=== PATIENT | male | born 1975 | race Hispanic/Latino ===

== ENCOUNTER 2017-11-29 22:19 | Observation (INO) | payer BC, OTHER ==
[2017-11-30] MEDS ORDERED: HYDROmorphone 0.5 mg/0.5 ml ISec IVP STA (00:28)
--- NOTE | 2017-11-30 00:33 | ED PDOC ---
Arrival/HPI - General Historian: Patient, Spouse - History of Present Illness Time/Duration: Other (see hpi) Context: Home <Alejo Staley - Last Filed: 11/30/17 02:28> <Art Miller - Last Filed: 11/30/17 03:10> - General Chief Complaint: Back Pain Time Seen by Provider: 11/30/17 00:20 - History of Present Illness Narrative History of Present Illness (Text): 11/30/17 00:30 This 42 yo male presents to this ED c/o b/l lower back pain since this morning. Patient pain has been gradually worsen. Patient stated his leg gave out due to pain while walking in the ED. Patient denies IV drug use. Patient denies trauma, heavy lifting, /GI incontinence, saddle anesthesias, weakness, paresthesias, urinary retention, or dizziness. (Alejo Staley) Past Medical History - Provider Review Nursing Documentation Reviewed: Yes - Infectious Disease Hx of Infectious Diseases: None - Tetanus Immunization Tetanus Immunization: Unknown - Cardiac Hx Cardiac Disorders: No - Pulmonary Hx Respiratory Disorders: No - Neurological Hx Neurological Disorder: No - HEENT Hx HEENT Disorder: No - Renal Hx Renal Disorder: No - Endocrine/Metabolic Hx Endocrine Disorders: No - Hematological/Oncological Hx Blood Disorders: No - Integumentary Hx Dermatological Disorder: No - Musculoskeletal/Rheumatological Hx Musculoskeletal Disorders: Yes Other/Comment: right knee injury - Gastrointestinal Hx Gastrointestinal Disorders: No - Genitourinary/Gynecological Hx Genitourinary Disorders: No - Psychiatric Hx Psychophysiologic Disorder: No Hx Substance Use: No - Past Surgical History Past Surgical History: No Previous - Suicidal Assessment Feels Threatened In Home Enviroment: No <Alejo Staley - Last Filed: 11/30/17 02:28> Family/Social History - Physician Review Nursing Documentation Reviewed: Yes Family/Social History: Other (noncontributory) Smoking Status: Heavy Smoker > 10 Cigarettes Daily Hx Alcohol Use: Yes Hx Substance Use: No Hx Substance Use Treatment: No <Alejo Staley - Last Filed: 11/30/17 02:28> Allergies/Home Meds <Alejo Staley - Last Filed: 11/30/17 02:28> <Art Miller - Last Filed: 11/30/17 03:10> Allergies/Adverse Reactions: Allergies No Known Allergies Allergy (Verified 04/02/15 08:53) Home Medications: Home Meds Medication Instructions Recorded Confirmed No Known Home Med [No Known Home 04/02/15 11/30/17 Med] Review of Systems - Review of Systems Constitutional: Normal. absent: Fatigue, Weight Change, Fevers, Night Sweats Eyes: Normal. absent: Vision Changes, Photophobia ENT: Normal Respiratory: Normal. absent: SOB, Cough Cardiovascular: Normal. absent: Chest Pain Gastrointestinal: Normal. absent: Abdominal Pain, Nausea, Vomiting Genitourinary Male: Normal. absent: Dysuria, Frequency, Hematuria Musculoskeletal: Back Pain. absent: Neck Pain Skin: Normal. absent: Rash Neurological: Normal. absent: Headache, Dizziness, Focal Weakness, Gait Changes , Speech Changes, Facial Droop, Disequilibrium, Seizure Endocrine: Normal Hemo/Lymphatic: Normal Psychiatric: Normal. absent: Suicidal Ideation <Alejo Staley P - Last Filed: 11/30/17 02:28> Physical Exam Temperature: Afebrile Blood Pressure: Normal Pulse: Regular Respiratory Rate: Normal Appearance: Positive for: Well-Appearing, Non-Toxic, Comfortable Pain Distress: None Mental Status: Positive for: Alert and Oriented X 3 - Systems Exam Head: Present: Atraumatic, Normocephalic Pupils: Present: PERRL Extroacular Muscles: Present: EOMI Conjunctiva: Present: Normal Mouth: Present: Moist Mucous Membranes Neck: Present: Normal Range of Motion Respiratory/Chest: Present: Clear to Auscultation, Good Air Exchange. No: Respiratory Distress, Accessory Muscle Use Cardiovascular: Present: Regular Rate and Rhythm, Normal S1, S2. No: Murmurs Abdomen: Present: Normal Bowel Sounds. No: Tenderness, Distention, Peritoneal Signs Back: Present: Normal Inspection, Paraspinal Tenderness (mild b/l paravertebral tenderness. No vertebral point tenderness. no vertebral step off.). No: CVA Tenderness, Midline Tenderness Upper Extremity: Present: Normal Inspection, Normal ROM. No: Cyanosis, Edema Lower Extremity: Present: Normal Inspection, Normal ROM. No: Edema Neurological: Present: GCS=15, CN II-XII Intact, Speech Normal, Motor Func Grossly Intact, Normal Sensory Function, Normal Cerebellar Funct, Gait Normal Skin: Present: Warm, Dry, Normal Color. No: Rashes Psychiatric: Present: Alert, Oriented x 3, Normal Insight, Normal Concentration <Alejo Staley - Last Filed: 11/30/17 02:28> Vital Signs Temp Pulse Resp BP Pulse Ox 11/29/17 22:40 98.8 F 82 18 126/74 99 11/29/17 22:36 98.8 F Medical Decision Making Re-evaluation Time: 03:07 Reassessment Condition: Re-examined, Improving,but remains with symptoms <Alejo tSaley - Last Filed: 11/30/17 02:28> <Art Miller - Last Filed: 11/30/17 03:10> ED Course and Treatment: 11/30/17 02:28 On revaluation, patient persist with pain. I recommended patient to stay for intractable back pain. 11/30/17 03:00 I spoke with regarding intractable lower back pain. He agrees with plan for observation. (Alejo Staley) - Lab Interpretations Lab Results: 11/30/17 00:58 11/30/17 00:58 Lab Results 11/30/17 01:22: Urine Color Yellow, Urine Appearance Clear, Urine pH 6.0, Ur Specific [place] 1.025, Urine Protein Negative, Urine Glucose (UA) Negative, Urine Ketones Trace H, Urine Blood Negative, Urine Nitrate Negative, Urine Bilirubin Negative, Urine Urobilinogen 1.0 H, Ur Leukocyte Esterase Negative 11/30/17 00:58: Sodium 143, Potassium 4.3, Chloride 103, Carbon Dioxide 31, Anion Gap 13, BUN 16, Creatinine 1.0, Est GFR ( Amer) > 60, Est GFR (Non- Af Amer) > 60, Random Glucose 96, Calcium 9.8, Total Bilirubin 0.6, AST 20, ALT 37, Alkaline Phosphatase 64, Total Protein 7.0, Albumin 4.0, Globulin 3.0, Albumin/Globulin Ratio 1.3 11/30/17 00:58: WBC 10.5, RBC 5.40, Hgb 16.0, Hct 48.0, MCV 88.9, MCH 29.6, MCHC 33.3, RDW 14.1, Plt Count 215, MPV 10.8, Gran % 48.3 L, Lymph % (Auto) 37.7 H, [place] % (Auto) 9.8 H, Eos % (Auto) 3.5, Baso % (Auto) 0.7, Gran # 5.06, Lymph # (Auto) 3.9 H, [place] # (Auto) 1.0 H, Eos # (Auto) 0.4, Baso # (Auto) 0.07 - RAD Interpretation Narrative RAD Interpretations (Text): 11/30/17 03:07 EXAM: CT Lumbar Spine Without Intravenous Contrast FINDINGS: Vertebrae: The lumbar vertebral bodies are normal in height, without abnormal subluxation or acute fracture. There is a small mineralized density or rib adjacent to the left transverse process at the level which is labeled as T12 for the purpose of this dictation. The remaining lumbar vertebral bodies are [id number]. Discs/spinal canal/neural foramina: Mild narrowing of the thecal sac is visualized at L2-3. There is a right paracentral disc protrusion at L3-4 with moderate narrowing of the thecal sac. At L4-5, there is a broad-based disc protrusion with moderate narrowing of the thecal sac. At L5-S1 , there is a right paracentral disc bulge/osteophyte complex with protrusion causing effacement of the anterior epidural fat and mild/moderate narrowing of the thecal sac. Bilateral neural foramina is identified from L2-3 through L4-5, with left neural foraminal narrowing at L5-S1. Kidneys and ureters: There is a subcentimeter hypodense probable cyst at the midpole of the left kidney. Stomach and bowel: There is moderate fecal material within the visualized colon and rectum. Colonic diverticula are visualized. IMPRESSION: 1. The lumbar vertebral bodies are normal in height, without abnormal subluxation or acute fracture. 2. There is a small mineralized density or rib adjacent to the left transverse process at the level which is labeled as T12 for the purpose of this dictation. This labeling could be confirmed with a thoracic spine x-ray study. 3. Mild narrowing of the thecal sac is visualized at L2-3. There is a right paracentral disc protrusion at L3-4 with moderate narrowing of the thecal sac. At L4-5, there is a broad-based disc protrusion with moderate narrowing of the thecal sac. At L5-S1, there is a right paracentral disc bulge/osteophyte complex with protrusion causing effacement of the anterior epidural fat and mild /moderate narrowing of the thecal sac. These findings can be further evaluated with MRI. 4. Bilateral neural foramina is identified from L2-3 through L4-5, with left neural foraminal narrowing at L5-S1. 5. Additional CT findings described above. (Alejo Staley) Radiology Orders: 11/30/17 00:30 LUMBAR SPINE W/O CONTRAST [CT] Stat - Medication Orders Current Medication Orders: Cyclobenzaprine HCl (Flexeril) 10 mg PO TID STELLA Famotidine (Pepcid) 40 mg PO HS STELLA Oxycodone/Acetaminophen (Percocet 10/325 Mg Tab) 1 tab PO Q4H PRN PRN Reason: Pain, severe (8-10) Discontinued Medications Hydromorphone HCl (Dilaudid) 1 mg IVP STAT STA Stop: 11/30/17 00:29 Last Admin: 11/30/17 01:03 Dose: 1 mg MAR Pain Assessment Document 11/30/17 01:03 [email or web address] (Rec: 11/30/17 01:04 [id number]) Pain Reassessment Is this a pain reassessment? No Sleep Is patient sleeping during reassessment? No Presence of Pain Presence of Pain Yes Pain Scale Used Pain Scale Used Numeric Location Pain Location Body Site Back Description Description Constant Intensity of Pain at present 8 Pain Behavior Facial Grimacing Aggravating Factors Changing Position Alleviating Factors/Management Position Change Techniques Alleviating Factors Medication IVP Administration Document 11/30/17 01:03 [email or web address] (Rec: 11/30/17 01:04 [id number]) Charges for Administration # of IVP Administrations 1 Ketorolac Tromethamine (Toradol) 30 mg IVP STAT STA Stop: 11/30/17 02:17 Last Admin: 11/30/17 02:44 Dose: 30 mg MAR Pain Assessment Document 11/30/17 02:44 [email or web address] (Rec: 11/30/17 02:46 [id number] [employer]) Pain Reassessment Is this a pain reassessment? No Sleep Is patient sleeping during reassessment? No Presence of Pain Presence of Pain Yes Pain Scale Used Pain Scale Used Numeric Location Pain Location Body Site Back Description Description Constant Pain Behavior Facial Grimacing Aggravating Factors Changing Position Alleviating Factors/Management Position Change Techniques Alleviating Factors Medication IVP Administration Document 11/30/17 02:44 [email or web address] (Rec: 11/30/17 02:46 [email or web address] [id number] [employer]) Charges for Administration # of IVP Administrations 1 - PA / REGISTERED ACCOUNT ADMINISTRATOR / Resident Statement / has reviewed & agrees with the documentation as recorded. / has examined the patient and agrees with the treatment plan. <Art Miller - Last Filed: 11/30/17 03:10> Disposition/Present on Arrival - Present on Arrival Any Indicators Present on Arrival: No History of DVT/PE: No History of Uncontrolled Diabetes: No Urinary Catheter: No History of Decub. Ulcer: No History Surgical Site Infection Following: None - Disposition Have Diagnosis and Disposition been Completed?: Yes Disposition Time: 03:09 Patient Plan: Observation <Alejo Staley - Last Filed: 11/30/17 02:28> <Art Miller - Last Filed: 11/30/17 03:10> - Disposition Diagnosis: Intractable back pain Disposition: HOSPITALIZED Condition: STABLE Forms: [employer] (Croatian)
[2017-11-30 01:20] LABS: BASO # 0.07 K/mm3 (0.0-2.0); BASO % 0.7 % (0.0-3.0); EOS # 0.4 (0.0-0.7); EOS % 3.5 % (1.5-5.0); GRAN # 5.06 (1.4-6.5); GRAN % 48.3 % (50.0-68.0); LYMPH # 3.9 (1.2-3.4); LYMPH % 37.7 % (22.0-35.0); MEAN CELL VOLUME 88.9 fl (80.0-105.0); MEAN CORPUSCULAR HEMOGLOBIN 29.6 pg (25.0-35.0); MEAN CORPUSCULAR HGB CONC 33.3 g/dl (31.0-37.0); MEAN PLATELET VOLUME 10.8 fl (7.0-11.0); MONO % 9.8 % (1.0-6.0); RBC 5.4 10^6/uL (3.5-6.1); RED CELL DISTRIBUTION WIDTH 14.1 % (11.5-14.5); WHITE BLOOD COUNT 10.5 10^3/ul (4.5-11.0)
[2017-11-30 01:38] LABS: ALB/GLOB RATIO 1.3 (1.1-1.8); ALT/SGPT 37 U/L (7-56); AST/SGOT 20 U/L (17-59); BLOOD UREA NITROGEN 16 mg/dL (7-21); CALCIUM 9.8 mg/dL (8.4-10.5); GFR AFRICAN-AMERICAN > 60; GFR NON-AFRICAN AMERICAN > 60
[2017-11-30 01:39] LABS: URINE BILIRUBIN NEGATIVE (NEGATIVE); URINE BLOOD NEGATIVE (NEGATIVE); URINE GLUCOSE (UA) NEGATIVE (NEGATIVE); URINE LEUKOCYTE ESTERASE NEGATIVE Leu/uL (NEGATIVE); URINE NITRATE NEGATIVE (NEGATIVE); URINE PROTEIN NEGATIVE mg/dL (<30 mg/dL)
[2017-11-30 01:45] LABS: URINE APPEARANCE CLEAR (CLEAR); URINE COLOR YELLOW (YELLOW)
--- NOTE | 2017-11-30 02:29 | CP.PCM.HP ---
<Neida Cabezas - Last Filed: 11/30/17 06:05> History of Present Illness - History of Present Illness History of Present Illness: Neida Cabezas, PGY1, H&P for : CC: back pain 42 year old male with PMH gastric ulcer (in childhood), presents for lower back pain that started this AM. This morning, while pt bent down to put on his socks , he suddenly felt sharp right sided low back pain, rates it as 8/10, radiates to right buttock area with associated numbness. Pt states that he was unable to go to work after this and has been lying in bed since. Pt has not had such pain before. 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 Throughout the day, the pain is now throughout lower lumbar back region, radiating to buttocks, states that he also feels weakness in his legs, "where his legs gave out" while coming to ED. States that any movement worsens the pain, while lying in bed relieves the pain. Did not take any medication at home. Denies bladder/bowel incontinence, saddle anesthesia, headache, fevers, chills, body aches, cp, sob, abdominal pain , leg swelling, paresthesias down the legs. In ED, pt's vitals stable, given 1 dose of dilaudid IV. 12 point ROS obtained and neg, except as noted per HPI. PMH: gastric ulcer (in childhood at age 8) PSH: right ACL repair (2016), hernia repair ALL: NKA FH: denies SH: works as a electromechanical equipment tester, works with heavy instruments. Smokes 1 ppd for past 30 years. Drinks beers occasionally once monthly. No recreational drugs. PMD: does not have one (goes to doctor on a "need-by basis") Present on Admission - Present on Admission Any Indicators Present on Admission: No History of DVT/PE: No History of Uncontrolled Diabetes: No Urinary Catheter: No Decubitus Ulcer Present: No Review of Systems - Review of Systems All systems: reviewed and no additional remarkable complaints except Review of Systems: as per hpi Past Patient History - Infectious Disease Hx of Infectious Diseases: None - Tetanus Immunizations Tetanus Immunization: Unknown - Past Social History Smoking Status: Heavy Smoker > 10 Cigarettes Daily - CARDIAC Hx Cardiac Disorders: No - PULMONARY Hx Respiratory Disorders: No - NEUROLOGICAL Hx Neurological Disorder: No - HEENT Hx HEENT Problems: No - RENAL Hx Chronic Kidney Disease: No - ENDOCRINE/METABOLIC Hx Endocrine Disorders: No - HEMATOLOGICAL/ONCOLOGICAL Hx Blood Disorders: No - INTEGUMENTARY Hx Dermatological Problems: No - MUSCULOSKELETAL/RHEUMATOLOGICAL Hx Musculoskeletal Disorders: Yes Other/Comment: right knee injury - GASTROINTESTINAL Hx Gastrointestinal Disorders: No - GENITOURINARY/GYNECOLOGICAL Hx Genitourinary Disorders: No - PSYCHIATRIC Hx Psychophysiologic Disorder: No Hx Substance Use: No Meds Allergies/Adverse Reactions: Allergies Allergy/AdvReac Type Severity Reaction Status Date / Time No Known Allergies Allergy Verified 04/02/15 08:53 Physical Exam - Constitutional Appears: Non-toxic, No Acute Distress - Head Exam Head Exam: ATRAUMATIC, NORMOCEPHALIC - Eye Exam Eye Exam: EOMI, PERRL. absent: Conjunctival injection, Nystagmus, Scleral icterus Pupil Exam: NORMAL ACCOMODATION, PERRL - ENT Exam ENT Exam: Mucous Membranes Moist - Neck Exam Neck exam: Positive for: Full Rom - Respiratory Exam Respiratory Exam: Clear to Auscultation Bilateral, NORMAL BREATHING PATTERN. absent: Accessory Muscle Use, Chest Wall Tenderness, Decreased Breath Sounds, Rales, Rhonchi, Wheezes, Respiratory Distress, Stridor - Cardiovascular Exam Cardiovascular Exam: RRR, +S1, +S2. absent: Systolic Murmur - GI/Abdominal Exam GI & Abdominal Exam: Normal Bowel Sounds, Soft. absent: Diminished Bowel Sounds , Distended, Firm, Guarding, Hernia, Organomegaly, Rebound, Rigid, Tenderness - Extremities Exam Extremities exam: Positive for: normal inspection. Negative for: calf tenderness, pedal edema - Back Exam Back exam: muscle spasm, paraspinal tenderness. absent: vertebral tenderness Additional comments: active ROM limited due to pain. No stepoff sign. Straight leg raise positive on the left. - Neurological Exam Neurological exam: Alert, CN II-XII Intact, Oriented x3, Reflexes Normal Additional comments: Motor strength 5/5 UE and LE, bilaterally Sensation intact throughout. - Psychiatric Exam Psychiatric exam: Normal Affect, Normal Mood - Skin Skin Exam: Dry, Normal Color, Warm Results - Vital Signs Recent Vital Signs: Last Vital Signs Temp 98.8 F 11/29/17 22:40 Pulse 82 02/26/18 22:40 Resp 18 11/29/17 22:40 BP 126/74 11/29/17 22:40 Pulse Ox 99 11/29/17 22:40 - Labs Result Diagrams: 11/30/17 00:58 11/30/17 00:58 Labs: Laboratory Results - last 24 hr 11/30/17 11/30/17 11/30/17 00:58 00:58 01:22 WBC 10.5 RBC 5.40 Hgb 16.0 Hct 48.0 MCV 88.9 MCH 29.6 MCHC 33.3 RDW 14.1 Plt Count 215 MPV 10.8 Gran % 48.3 L Lymph % (Auto) 37.7 H [place] % (Auto) 9.8 H Eos % (Auto) 3.5 Baso % (Auto) 0.7 Gran # 5.06 Lymph # (Auto) 3.9 H [place] # (Auto) 1.0 H Eos # (Auto) 0.4 Baso # (Auto) 0.07 Sodium 143 Potassium 4.3 Chloride 103 Carbon Dioxide 31 Anion Gap 13 BUN 16 Creatinine 1.0 Est GFR ( Amer) > 60 Est GFR (Non-Af Amer) > 60 Random Glucose 96 Calcium 9.8 Total Bilirubin 0.6 AST 20 ALT 37 Alkaline Phosphatase 64 Total Protein 7.0 Albumin 4.0 Globulin 3.0 Albumin/Globulin Ratio 1.3 Urine Color Yellow Urine Appearance Clear Urine pH 6.0 Ur Specific [place] 1.025 Urine Protein Negative Urine Glucose (UA) Negative Urine Ketones Trace H Urine Blood Negative Urine Nitrate Negative Urine Bilirubin Negative Urine Urobilinogen 1.0 H Ur Leukocyte Esterase Negative Assessment & Plan - Assessment and Plan (Free Text) Assessment: 42 year old male with no significant PMH presents for intractable back pain: Lower back pain: 2/2 muscle spasm vs herniated disc vs fracture (less likely) - Given dilaudid 1 mg and toradol IV in ED - F/u CAT lumbar spine - Start Flexeril, Percocet prn, lidocaine patch - Cont to monitor - Fall precautions - PT eval Hx of tobacco use: - advised cessation - Offered nicotine patch, declined PPX: SCDs, Pepcid Diet: Regular diet Discussed with . - Date & Time Date: 11/30/17 Time: 03:29 <Artemio Desai - Last Filed: 11/30/17 07:13> Results - Vital Signs Recent Vital Signs: Last Vital Signs Temp 97.6 F 11/30/17 04:06 Pulse 63 11/30/17 04:06 Resp 18 11/30/17 04:06 BP 104/64 11/30/17 04:06 Pulse Ox 99 11/30/17 03:38 - Labs Result Diagrams: 11/30/17 06:20 11/30/17 00:58 Labs: Laboratory Results - last 24 hr 11/30/17 06:20 WBC 9.9 RBC 5.30 Hgb 15.6 Hct 47.4 MCV 89.4 MCH 29.4 MCHC 32.9 RDW 14.1 Plt Count 208 MPV 10.9 Gran % 43.1 L Lymph % (Auto) 42.0 H [place] % (Auto) 9.8 H Eos % (Auto) 4.4 Baso % (Auto) 0.7 Gran # 4.26 Lymph # (Auto) 4.2 H [place] # (Auto) 1.0 H Eos # (Auto) 0.4 Baso # (Auto) 0.07 Attending/Attestation - Attestation I have personally seen and examined this patient.: Yes I have fully participated in the care of the patient.: Yes I have reviewed all pertinent clinical information: Yes Notes (Text): 11/30/17 07:13 Patient was seen when he was in bed # 21 in the ER. Agree with history , physical examination, assessment and plan.
[2017-11-30] MEDS ORDERED: Oxycodone/Acetaminophen 10/325 mg Tab PO PRN (03:01)
--- NOTE | 2017-11-30 03:05 | CT ---
EXAM: CT Lumbar Spine Without Intravenous Contrast EXAM DATE/TIME: 11/30/2017 12:30 AM CLINICAL HISTORY: The patient age is 42 years old and is male; Pain; Low back pain Facility exam id and description: Ct lumbs lumbar spine w/o contrast TECHNIQUE: Axial computed tomography images of the lumbar spine without intravenous contrast. All CT scans at this facility use one or more dose reduction techniques, viz.: automated exposure control; ma/kV adjustment per patient size (including targeted exams where dose is matched to indication; i.e. head); or iterative reconstruction technique. Coronal and sagittal reformatted images were created and reviewed. COMPARISON: No relevant prior studies available. FINDINGS: Vertebrae: The lumbar vertebral bodies are normal in height, without abnormal subluxation or acute fracture. There is a small mineralized density or rib adjacent to the left transverse process at the level which is labeled as T12 for the purpose of this dictation. The remaining lumbar vertebral bodies are [id number]. Discs/spinal canal/neural foramina: Mild narrowing of the thecal sac is visualized at L2-3. There is a right paracentral disc protrusion at L3-4 with moderate narrowing of the thecal sac. At L4-5, there is a broad-based disc protrusion with moderate narrowing of the thecal sac. At L5-S1, there is a right paracentral disc bulge/osteophyte complex with protrusion causing effacement of the anterior epidural fat and mild/moderate narrowing of the thecal sac. Bilateral neural foramina is identified from L2-3 through L4-5, with left neural foraminal narrowing at L5-S1. Kidneys and ureters: There is a subcentimeter hypodense probable cyst at the midpole of the left kidney. Stomach and bowel: There is moderate fecal material within the visualized colon and rectum. Colonic diverticula are visualized. IMPRESSION: 1. The lumbar vertebral bodies are normal in height, without abnormal subluxation or acute fracture. 2. There is a small mineralized density or rib adjacent to the left transverse process at the level which is labeled as T12 for the purpose of this dictation. This labeling could be confirmed with a thoracic spine x-ray study. 3. Mild narrowing of the thecal sac is visualized at L2-3. There is a right paracentral disc protrusion at L3-4 with moderate narrowing of the thecal sac. At L4-5, there is a broad-based disc protrusion with moderate narrowing of the thecal sac. At L5-S1, there is a right paracentral disc bulge/osteophyte complex with protrusion causing effacement of the anterior epidural fat and mild/moderate narrowing of the thecal sac. These findings can be further evaluated with MRI. 4. Bilateral neural foramina is identified from L2-3 through L4-5, with left neural foraminal narrowing at L5-S1. 5. Additional CT findings described above.
[2017-11-30 03:39] VITALS: BMI 29.5
[2017-11-30 06:50] LABS: BASO # 0.07 K/mm3 (0.0-2.0); BASO % 0.7 % (0.0-3.0); EOS # 0.4 (0.0-0.7); EOS % 4.4 % (1.5-5.0); GRAN # 4.26 (1.4-6.5); GRAN % 43.1 % (50.0-68.0); HEMOGLOBIN 15.6 g/dL (14.0-18.0); LYMPH # 4.2 (1.2-3.4); MEAN CELL VOLUME 89.4 fl (80.0-105.0); MEAN CORPUSCULAR HEMOGLOBIN 29.4 pg (25.0-35.0); MEAN CORPUSCULAR HGB CONC 32.9 g/dl (31.0-37.0); MEAN PLATELET VOLUME 10.9 fl (7.0-11.0); MONO % 9.8 % (1.0-6.0); RBC 5.3 10^6/uL (3.5-6.1); RED CELL DISTRIBUTION WIDTH 14.1 % (11.5-14.5); WHITE BLOOD COUNT 9.9 10^3/ul (4.5-11.0)
[2017-11-30 09:08] VITALS: BP 110/62; PULSE 72; RESP 20; TEMP 97.8; O2SAT 95
--- NOTE | 2017-11-30 09:09 | RAD ---
HISTORY: smoker COMPARISON: No prior. FINDINGS: LUNGS: No active pulmonary disease. PLEURA: No significant pleural effusion identified, no pneumothorax apparent. CARDIOVASCULAR: Normal. OSSEOUS STRUCTURES: No significant abnormalities. VISUALIZED UPPER ABDOMEN: Normal. OTHER FINDINGS: None. IMPRESSION: No active disease.
[2017-11-30] MEDS ORDERED: Lidocaine 5% Patch TD SCH (10:00)
[2017-11-30] MEDS ORDERED: Meloxicam 7.5 MG TAB PO SCH (10:00)
--- NOTE | 2017-11-30 13:38 | CP.PCM.DIS ---
Provider - Provider Date of Admission: 11/30/17 02:35 Attending physician: Wenceslao Watson MD Primary care physician: NO PRIMARY CARE PROVIDER Time Spent in preparation of Discharge (in minutes): 70 Hospital Course - Lab Results Lab Results: Most Recent Lab Values WBC 9.9 10^3/ul (4.5-11.0) 11/30/17 06:20 RBC 5.30 10^6/uL (3.5-6.1) 11/30/17 06:20 Hgb 15.6 g/dL (14.0-18.0) 11/30/17 06:20 Hct 47.4 % (42.0-52.0) 11/30/17 06:20 MCV 89.4 fl (80.0-105.0) 11/30/17 06:20 MCH 29.4 pg (25.0-35.0) 11/30/17 06:20 MCHC 32.9 g/dl (31.0-37.0) 11/30/17 06:20 RDW 14.1 % (11.5-14.5) 11/30/17 06:20 Plt Count 208 10^3/uL (120.0-450.0) 11/30/17 06:20 MPV 10.9 fl (7.0-11.0) 11/30/17 06:20 Gran % 43.1 % (50.0-68.0) L 11/30/17 06:20 Lymph % (Auto) 42.0 % (22.0-35.0) H 11/30/17 06:20 [place] % (Auto) 9.8 % (1.0-6.0) H 11/30/17 06:20 Eos % (Auto) 4.4 % (1.5-5.0) 11/30/17 06:20 Baso % (Auto) 0.7 % (0.0-3.0) 11/30/17 06:20 Gran # 4.26 (1.4-6.5) 11/30/17 06:20 Lymph # (Auto) 4.2 (1.2-3.4) H 11/30/17 06:20 [place] # (Auto) 1.0 (0.1-0.6) H 11/30/17 06:20 Eos # (Auto) 0.4 (0.0-0.7) 11/30/17 06:20 Baso # (Auto) 0.07 K/mm3 (0.0-2.0) 11/30/17 06:20 Sodium 143 mmol/L (132-148) 11/30/17 00:58 Potassium 4.3 mmol/L (3.6-5.0) 11/30/17 00:58 Chloride 103 mmol/L (98-107) 11/30/17 00:58 Carbon Dioxide 31 mmol/L (21-33) 11/30/17 00:58 Anion Gap 13 (10-20) 11/30/17 00:58 BUN 16 mg/dL (7-21) 11/30/17 00:58 Creatinine 1.0 mg/dl (0.8-1.5) 11/30/17 00:58 Est GFR ( Amer) > 60 11/30/17 00:58 Est GFR (Non-Af Amer) > 60 11/30/17 00:58 Random Glucose 96 mg/dL (70-110) 11/30/17 00:58 Calcium 9.8 mg/dL (8.4-10.5) 11/30/17 00:58 Total Bilirubin 0.6 mg/dL (0.2-1.3) 11/30/17 00:58 AST 20 U/L (17-59) 11/30/17 00:58 ALT 37 U/L (7-56) 11/30/17 00:58 Alkaline Phosphatase 64 U/L (38-126) 11/30/17 00:58 Total Protein 7.0 g/dL (5.8-8.3) 11/30/17 00:58 Albumin 4.0 g/dL (3.0-4.8) 11/30/17 00:58 Globulin 3.0 gm/dL 11/30/17 00:58 Albumin/Globulin Ratio 1.3 (1.1-1.8) 11/30/17 00:58 Urine Color Yellow (YELLOW) 11/30/17 01:22 Urine Appearance Clear (CLEAR) 11/30/17 01:22 Urine pH 6.0 (4.7-8.0) 11/30/17 01:22 Ur Specific [place] 1.025 (1.005-1.035) 02/27/18 01:22 Urine Protein Negative mg/dL (<30 mg/dL) 11/30/17 01:22 Urine Glucose (UA) Negative mg/dL (NEGATIVE) 11/30/17 01:22 Urine Ketones Trace mg/dL (NEGATIVE) H 11/30/17 01:22 Urine Blood Negative (NEGATIVE) 11/30/17 01:22 Urine Nitrate Negative (NEGATIVE) 11/30/17 01:22 Urine Bilirubin Negative (NEGATIVE) 11/30/17 01:22 Urine Urobilinogen 1.0 E.U./dL (<1 E.U./dL) H 11/30/17 01:22 Ur Leukocyte Esterase Negative Alessandro/uL (NEGATIVE) 11/30/17 01:22 Alcohol, Quantitative < 10 mg/dL (0-10) 11/30/17 00:58 - Hospital Course Hospital Course: 42 year old male with no significant PMH presents for intractable back pain. CT lumbar spine was done and showed some herniation of L5. He was given dilaudid for pain and started on Start Flexeril, Percocet prn, lidocaine patch. Patients pain improved the next day and was discharged home with same medications. He was advised not to monitor heavy machinery while taking flexeril. He was also told to Make an appointment with PMD, call insurance or see Dr. Adorno and Consider Referral for pain management or physical therapy for back pain. Discharge Exam - Head Exam Head Exam: ATRAUMATIC, NORMOCEPHALIC - Eye Exam Eye Exam: EOMI, Normal appearance, PERRL - Respiratory Exam Respiratory Exam: Clear to PA & Lateral, NORMAL BREATHING PATTERN - Cardiovascular Exam Cardiovascular Exam: REGULAR RHYTHM - Back Exam Back exam: paraspinal tenderness - Neurological Exam Neurological exam: Alert, CN II-XII Intact, Normal Gait, Oriented x3 Discharge Plan - Discharge Medications Prescriptions: Cyclobenzaprine [Flexeril] 10 mg PO HS PRN #6 tab PRN Reason: Muscle Spasm Meloxicam [Mobic] 7.5 mg PO DAILY PRN #6 tab PRN Reason: Pain, Moderate (4-7) - Follow Up Plan Condition: STABLE Disposition: HOME/ ROUTINE Instructions: Heart Healthy Diet, Low Back Pain (DC), Preventing Falls, Flu Vaccine Additional Instructions: 1. Take Flexeril at night as needed for back pain 2. Take Meloxicam daily as needed for back pain 3. Make an appointment with PMD. Can either call insurance or see Dr. Adorno. 4. Consider Referral for pain management or physical therapy for back pain. Referrals: Maixmiliano Adorno MD [Staff Provider] - PCP,NO [Primary Care Provider] -
== END 2017-11-30 15:24 | disposition home or self-care (01) ==
LOC: ED 22:19 → ERH 11-30 02:35 → 5RNO 11-30 03:56
PROVIDERS: ADMIT Internal Medicine; ATTEND Internal Medicine
DX: M51.26 Other intervertebral disc displacement, lumbar region (principal); Z87.11 Personal history of peptic ulcer disease; F17.210 Nicotine dependence, cigarettes, uncomplicated; R40.2412 Glasgow coma scale score 13-15, at arrival to emergency department
CPT/HCPCS: 71045; 72131; 80053; 81003; 85025; 96374; 96375; 97161; 99284; G0378; G0480; G8978; G8979; G8980; J1170; J1885